=== PATIENT | female | born 1975 | race Caucasian/White ===

== ENCOUNTER 2018-12-28 00:27 | Emergency (ER) | payer OTHER ==
[~2018-12-28] VITALS: Ht 167.6 cm; Wt 77.3 kg
[~2018-12-28 00:27] MED LIST: HYDR-3498 PO
[2018-12-28 00:35] VITALS: Ht 167.6 cm; Wt 77.3 kg
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
[2018-12-28] MEDS ORDERED: IOHEXOL 100 ML ONE (08:19)
[2018-12-28] MEDS ORDERED: IOHEXOL 350MG/ML 50 ML BTL ONE (08:19)
[2018-12-28] MEDS ORDERED: IOHEXOL 0 ML ONE (08:19)
[2018-12-28] MEDS ORDERED: SOD CHLORIDE 0.9% 100 ML ONE (08:19)
[2018-12-28] MEDS ORDERED: NAPR-985 PO (09:11)
[2018-12-28 09:38] VITALS: BP 134/78; PULSE 71; RESP 18
== END 2018-12-28 09:39 | disposition home or self-care (01) ==
LOC: FTE 00:27 → E/R 09:39
DX: S80.11XA Contusion of right lower leg, initial encounter (principal); F17.210 Nicotine dependence, cigarettes, uncomplicated; M71.21 Synovial cyst of popliteal space [Baker], right knee; M79.604 Pain in right leg; X58.XXXA Exposure to other specified factors, initial encounter; Y92.9 Unspecified place or not applicable
CPT/HCPCS: 71045; 73706; 80048; 84703; 85025; 85610; 86850; 86900; 86901; 93005; 93971; Q9967; Z7610; 36415